=== PATIENT | female | born 1935 | race Hispanic/Latino ===

== ENCOUNTER 2022-06-13 16:37 | Emergency (ER) | payer MEDICARE ==
[~2022-06-13] VITALS: Ht 144.8 cm; Wt 38.2 kg
[2022-06-13 17:47] LABS: BASOPHILS % (AUTO) 0.2 % (0.0-5.0); EOSINOPHILS % (AUTO) 0.4 % (0.0-8.0); HEMATOCRIT 36.9 % (36-48); MEAN CORPUSCULAR HEMOGLOBIN 30.4 pg (27.0-33.0); MEAN CORPUSCULAR HGB CONC 33.3 g/dL (32.0-36.0); MEAN CORPUSCULAR VOLUME 91.1 fL (79-99); MONOCYTES % (AUTO) 8.3 % (3.0-13.0); NEUTROPHILS % (AUTO) 80.7 % (40.0-77.0); PLATELET COUNT (AUTO) 261 K/uL (130-400); RED BLOOD CELL COUNT(AUTO) 4.05 MIL/uL (4.00-5.50); RED CELL DISTRIBUTION WIDTH 14.8 % (11.0-15.5); WHITE BLOOD COUNT (AUTO) 9.6 K/uL (4.8-10.8)
[2022-06-13 17:54] LABS: CREATININE 0.7 mg/dL (0.5-1.5); POTASSIUM 3.6 mmol/L (3.5-5.1)
[2022-06-13 18:07] LABS: TOTAL PROTEIN, SERUM 7.8 g/dL (6.0-8.3)
[2022-06-13] MEDS ORDERED: 0.9%NACL 1000ML 1,000 ML IV ONE (18:30)
[2022-06-13] MEDS ORDERED: ONDANSETRON 4MG INJ IVP ONE (18:30)
[2022-06-13] MEDS ORDERED: MORPHINE 2 MG SYG IVP ONE (18:30)
[2022-06-13] MEDS ORDERED: IOHEXOL-350 50ML VIAL IV ONE (20:31)
[2022-06-13 20:58] VITALS: BP 134/87
== END 2022-06-13 22:31 | disposition home or self-care (01) ==
LOC: EDH 16:37
DX: K86.9 Disease of pancreas, unspecified (principal); R74.8 Abnormal levels of other serum enzymes; M19.90 Unspecified osteoarthritis, unspecified site; F03.90 Unspecified dementia, unspecified severity, without behavioral disturbance, psychotic disturbance, mood disturbance, and anxiety; I10 Essential (primary) hypertension; E78.00 Pure hypercholesterolemia, unspecified; R41.0 Disorientation, unspecified; R62.7 Adult failure to thrive; Z68.1 Body mass index [BMI] 19.9 or less, adult; Z90.710 Acquired absence of both cervix and uterus; Z98.890 Other specified postprocedural states
CPT/HCPCS: 99285; 80053; 83690; 85025; 36415; 74177; 76705; 96374; 96361; 96375; J2405; Q9967